=== PATIENT | male | born 1955 | race Caucasian/White ===

== ENCOUNTER → 2019-09-27 | Day surgery (SDC) | payer MEDICARE, OTHER ==
[~2019-09-27] MED LIST: ACETAMINOPHEN 325 MG TABLET PO PRN; ALBUTEROL SULFATE 2.5 MG/3 ML NEBU. NEB PRN; ATEN25TA42 PO; ATROPINE 0.5 MG/5 ML DISP.SYRIN. IV PRN; BALANCED SALT IRRIG OPHTH SOLN 15 ML BOTTLE. IRR ONE; CHONDROIT-SOD-HYALURONATE KIT. OD ONE; CHONDROIT-SOD-HYALURONATE KIT. ONE; DILT300C23 PO; EPINEPHrine AMPULE 0.5 MG in BALANCED SALT IRRIG SOLN PLUS 500 ML IO ONE; ERYTHROMYCIN 0.5% OPHTH OINTMENT 1GM TUBE. OD ONE; HYALURONIDASE 75UNITS in LIDOCAINE 2% PF OPHTH 10 ML SYRINGE. OD ONE; IV RINGERS SOLUTION,LACTATED 1,000 ML IV SCH; LOSA50TA86 PO; METH5TAB85 PO; MOXIFLOXACIN 0.5% OPHTH SOLUTION 3ML BOTTLE. OD SCH; NEPAFENAC 0.1% OPHTH SOLUTION 3ML BOTTLE. OD ONE; NON FORMULARY ITEM OD ONE; ONDANSETRON PF 4 MG/2 ML VIAL. IV PRN; PHENOL ORAL SPRAY 177ML BOTTLE. MM PRN; POVIDONE-IODINE 5% OPHTH SOLUTION 30ML BOTTLE. OD ONE; POVIDONE-IODINE 5% OPHTH SOLUTION 30ML BOTTLE. ONE; PROPOFOL 20 ML IV ONE; TETRACAINE 0.5% OPHTH SOLUTION 4ML BOTTLE. OD ONE; TETRACAINE 0.5% OPHTH SOLUTION 4ML BOTTLE. OU ONE; diphenhydrAMINE 50 MG/ML VIAL IV PRN; prednisoLONE ACETATE 1% OPHTH SUSPENSION 5ML BOTTLE. OD ONE; prednisoLONE ACETATE 1% OPHTH SUSPENSION 5ML BOTTLE. OD SCH; prednisoLONE ACETATE 1% OPHTH SUSPENSION 5ML BOTTLE. ONE
[2019-09-27] MEDS: MOXIFLOXACIN 0.5% OPHTH SOLUTION 3ML BOTTLE. OD SCH ×3 (09:38→09:50)
[2019-09-27] MEDS: CATARACT OPHTH GEL 0.5 ML SYRINGE. OD PRN ×2 (09:50→10:02)
--- NOTE | 2019-09-27 10:49 | PDOC4 ---
CATARACT Operative Report DATE DATE: 09/27/19 TIME: 10:48 Operation Performed Operative Report Name: Caio Marquez Operation Date: @TD@ Preoperative Diagnosis: 1. Senile cataract, RIGHT: eye Postoperative Diagnosis: 1. Senile cataract, RIGHT: eye. Operation: 1. Phacoemulsification with posterior chamber intraocular lens implant. Surgeon: Myrna David D.O. Anesthesia: Local with monitored anesthesia care. Description of Operation: With cardiac monitoring and intravenous sedation, the patient received peribulbar anesthesia in the holding area. Pressure was applied to the eye with a [place] balloon for approximately 10 minutes. The patient was taken to the operating room and placed in a supine position. The periorbital region was prepped and draped in the usual sterile fashion. A lid speculum was placed between the eyelids. The patient was positioned under the microscope. A temporal clear corneal incision was made with a keratome. Viscoelastic was then injected into the eye. A side port incision was made three clock hours to the left of the clear corneal incision. A cystotome and capsular forceps were used to make a continuous tear capsulorhexus. Hydrodissection was performed with balanced salt solution. The phacoemulsification needle was placed into the eye and the cataract was removed. The remaining cortical material was removed with irrigation and aspiration. The posterior capsule was noted to be clean and intact. Viscoelastic was again injected into the eye, inflating the posterior capsular bag. A foldable intraocular lens was then injected into the eye, unfolding as desired, and positioned in the capsular bag. The viscoelastic was aspirated from the eye. The wound edges were hydrated with balanced salt solution. There were no wound leaks. Viscoelastic was injected over the side port and clear corneal incisions. One drop of Vigamox and one drop of prednisolone acetate were instilled into the eye. The lid speculum was removed and a pressure dressing with a Thomas shield was placed over the eye. The patient was taken to the recovery room in good condition. AMANDA DAVID DO Sep 27, 2019 10:49
[2019-09-27 11:00] VITALS: BP 158/99
== END | disposition home or self-care (01) ==
LOC: SURG 08:31
PROVIDERS: ATTEND Ophthalmology
DX: H25.11 Age-related nuclear cataract, right eye (principal); I10 Essential (primary) hypertension; E05.90 Thyrotoxicosis, unspecified without thyrotoxic crisis or storm; E66.9 Obesity, unspecified; Z98.890 Other specified postprocedural states; Z83.3 Family history of diabetes mellitus; Z88.8 Allergy status to other drugs, medicaments and biological substances; Z68.31 Body mass index [BMI] 31.0-31.9, adult
CPT/HCPCS: 66984; J0171; J2704; V2632

== ENCOUNTER → 2020-08-14 | Outpatient (CLI) | payer MEDICARE, OTHER ==
[2019-09-27 11:00] VITALS: BP 158/99
[~2020-08-14] MED LIST changes: -ACETAMINOPHEN 325 MG TABLET PO PRN; -ALBUTEROL SULFATE 2.5 MG/3 ML NEBU. NEB PRN; -ATROPINE 0.5 MG/5 ML DISP.SYRIN. IV PRN; -BALANCED SALT IRRIG OPHTH SOLN 15 ML BOTTLE. IRR ONE; -CHONDROIT-SOD-HYALURONATE KIT. OD ONE; -CHONDROIT-SOD-HYALURONATE KIT. ONE; -EPINEPHrine AMPULE 0.5 MG in BALANCED SALT IRRIG SOLN PLUS 500 ML IO ONE; -ERYTHROMYCIN 0.5% OPHTH OINTMENT 1GM TUBE. OD ONE; -HYALURONIDASE 75UNITS in LIDOCAINE 2% PF OPHTH 10 ML SYRINGE. OD ONE; -IV RINGERS SOLUTION,LACTATED 1,000 ML IV SCH; -MOXIFLOXACIN 0.5% OPHTH SOLUTION 3ML BOTTLE. OD SCH; -NEPAFENAC 0.1% OPHTH SOLUTION 3ML BOTTLE. OD ONE; -NON FORMULARY ITEM OD ONE; -ONDANSETRON PF 4 MG/2 ML VIAL. IV PRN; -PHENOL ORAL SPRAY 177ML BOTTLE. MM PRN; -POVIDONE-IODINE 5% OPHTH SOLUTION 30ML BOTTLE. OD ONE; -POVIDONE-IODINE 5% OPHTH SOLUTION 30ML BOTTLE. ONE; -PROPOFOL 20 ML IV ONE; -TETRACAINE 0.5% OPHTH SOLUTION 4ML BOTTLE. OD ONE; -TETRACAINE 0.5% OPHTH SOLUTION 4ML BOTTLE. OU ONE; -diphenhydrAMINE 50 MG/ML VIAL IV PRN; -prednisoLONE ACETATE 1% OPHTH SUSPENSION 5ML BOTTLE. OD ONE; -prednisoLONE ACETATE 1% OPHTH SUSPENSION 5ML BOTTLE. OD SCH; -prednisoLONE ACETATE 1% OPHTH SUSPENSION 5ML BOTTLE. ONE
[2020-08-14 17:31] LABS: BASO % 0 % (0-3); EOS # 0.1 x10^3/uL (0.0-0.7); EOS % 2 % (0-3); HEMATOCRIT 44.9 % (39.0-53.0); HEMOGLOBIN 15.3 g/dL (13.0-17.5); LYMPH # 2.4 x10^3/uL (1.0-4.8); LYMPH % 37 % (24-48); MEAN CORPUSCULAR HEMOGLOBIN 31 pg (25-35); MEAN CORPUSCULAR HGB CONC 34 g/dL (31-37); MEAN CORPUSCULAR VOLUME 92 fL (79-100); MONO # 0.6 x10^3/uL (0.0-1.1); MONO % 10 % (0-9); NEUT # 3.3 x10^3uL (1.8-7.7); NEUT % 51 % (31-73); PLATELET COUNT 188 x10^3/uL (140-400); RED BLOOD COUNT 4.88 x10^6/uL (4.30-5.70); RED CELL DISTRIBUTION WIDTH 13.7 % (11.5-14.5); WHITE BLOOD COUNT 6.5 x10^3/uL (4.0-11.0)
[2020-08-14 17:33] LABS: CALCIUM 8.4 mg/dL (8.5-10.1); CREATININE 1.5 mg/dL (0.7-1.3); GFR 46.7; POTASSIUM 3.1 mmol/L (3.5-5.1)
== END ==
LOC: LAB 16:53
PROVIDERS: ATTEND Internal Medicine Interventional Cardiology
DX: I35.0 Nonrheumatic aortic (valve) stenosis (principal)
CPT/HCPCS: 36415; 80048; 85025; 85610

== ENCOUNTER → 2020-09-10 | Outpatient (CLI) | payer MEDICARE, OTHER ==
[2019-09-27 11:00] VITALS: BP 158/99
[2020-09-10 16:27] LABS: CALCIUM 8.5 mg/dL (8.5-10.1); CREATININE 1.4 mg/dL (0.7-1.3); GFR 50.5; POTASSIUM 3.3 mmol/L (3.5-5.1)
== END ==
LOC: LAB 15:37
PROVIDERS: ATTEND Internal Medicine Interventional Cardiology
DX: N28.9 Disorder of kidney and ureter, unspecified (principal); Z95.3 Presence of xenogenic heart valve
CPT/HCPCS: 36415; 80048

== ENCOUNTER → 2021-03-05 | Outpatient (CLI) | payer MEDICARE, OTHER ==
[2019-09-27 11:00] VITALS: BP 158/99
--- NOTE | 2021-03-05 12:26 | RAD ---
Exam performed: Scrotal ultrasound. Indication: Testicular pain and swelling Date of Service: 03/05/2021. Comparison: None available Technique: Real-time grayscale,color flow, duplex doppler and spectral analysis of the scrotal kyler nts is performed and images are obtained. Findings: The right testicle measures 5.2 x 2.8 x 2.7 cm where as the left testicle measures 4.4 x 2.8 x 2.4 cm . No focal lesions are identified. There is bilateral symmetric vascularity. The right epididymis is poorly visualized, instead a large loculated hydrocele or epididymal cyst me asuring 7.2 x 6.6 x 5.5 cm is seen. Multiple left epididymal cysts are seen, the largest measures 1.0 x 1.3 x 1.2 cm. Small left hydrocel e. No hydroceles and varicocele is identified. Impression: 1. Normal bilateral testicles. 2. Large loculated hydrocele versus renal cyst on the right with multiple small left epididymal cysts . Electronically signed by: Shanika Guadarrama MD (03/05/2021 12:23 PM) [id number]
== END ==
LOC: US 11:35
PROVIDERS: ATTEND Family Medicine
DX: N50.811 Right testicular pain (principal); N50.89 Other specified disorders of the male genital organs
CPT/HCPCS: 76870

== ENCOUNTER → 2021-03-13 | Day surgery (SDC) | payer MEDICARE, OTHER ==
[~2021-03-13] MED LIST changes: +APIX5TAB3 PO; +ASPI-630 PO; +BUPIVACAINE MPF 0.25% 10 ML VIAL. ONE; +DEXAMETHASONE SOD PHOS 10 MG/ML VIAL. ONE; +IOHEXOL 300 MG/ML 50 ML VIAL. ONE; +LIDOCAINE 1% PF 30 ML VIAL. ONE
[2021-03-13 15:25] VITALS: BP 169/99
== END | disposition home or self-care (01) ==
LOC: SURG 14:22
PROVIDERS: ATTEND Anesthesiology
DX: M54.16 Radiculopathy, lumbar region (principal); I10 Essential (primary) hypertension; E05.90 Thyrotoxicosis, unspecified without thyrotoxic crisis or storm; Z83.3 Family history of diabetes mellitus; Z95.3 Presence of xenogenic heart valve; Z88.8 Allergy status to other drugs, medicaments and biological substances; Z98.890 Other specified postprocedural states; Z79.899 Other long term (current) drug therapy; Z82.49 Family history of ischemic heart disease and other diseases of the circulatory system
CPT/HCPCS: 64483; 64484; J1100; J3490; Q9967

== ENCOUNTER → 2021-04-10 | Day surgery (SDC) | payer MEDICARE, OTHER ==
[2021-03-13 15:25] VITALS: BP 169/99
[~2021-04-10] MED LIST changes: -BUPIVACAINE MPF 0.25% 10 ML VIAL. ONE; -DEXAMETHASONE SOD PHOS 10 MG/ML VIAL. ONE; -IOHEXOL 300 MG/ML 50 ML VIAL. ONE; -LIDOCAINE 1% PF 30 ML VIAL. ONE
== END | disposition home or self-care (01) ==
LOC: SURG 14:51
PROVIDERS: ATTEND Anesthesiology
DX: M54.16 Radiculopathy, lumbar region (principal); I10 Essential (primary) hypertension; E05.90 Thyrotoxicosis, unspecified without thyrotoxic crisis or storm; Z88.8 Allergy status to other drugs, medicaments and biological substances; Z79.899 Other long term (current) drug therapy; E66.9 Obesity, unspecified; Z95.3 Presence of xenogenic heart valve; Z83.3 Family history of diabetes mellitus; Z98.890 Other specified postprocedural states; Z82.49 Family history of ischemic heart disease and other diseases of the circulatory system
CPT/HCPCS: 99204; G0463

== ENCOUNTER 2021-04-19 17:53 | Emergency (ER) | payer MEDICARE, OTHER ==
[~2021-04-19] VITALS: Ht 180.3 cm; Wt 109.8 kg
--- NOTE | 2021-04-19 18:13 | PHYS DOC ---
Past History Past Medical History: A-Fib, Hypertension Past Surgical History Bovine Aortic replacement 2009 General Adult HPI: HPI: ".. I was in to get my hydrocele on my Rt testicle stripped.. but I was in Afib.. they sent me to [facility].. I ve been off my Eliquis 5 days...but [facility] harrington said and admit and or go ED and be observed .. " Patient is a 65 year old male who presents with above hx and complaints of Afib. Sent from [facility] office. Pt. patient has known coagulopathy issues due to aortic valve replacement.. Patient has been off his Eliquis for approximately 5 days. Patient does have a history of hypertension. A. fib is used controlled with Cardizem. Patient was given metoprolol in the office Dr. Peters. Patient has noted he has had some increased fatigue in last several months and has discussed this with his search marketing specialist at [facility]. Review of Systems: Review of Systems: Constitutional: Denies fever or chills Eyes: Denies change in visual acuity HENT: Denies nasal congestion or sore throat Respiratory: Denies cough or shortness of breath Cardiovascular: Complains of A. fib GI: Denies abdominal pain, nausea, vomiting, bloody stools or diarrhea. : Denies dysuria. Complains of right hydrocele Musculoskeletal: Denies back pain or joint pain Integument: Denies rash Neurologic: Denies headache, focal weakness or sensory changes Endocrine: Denies polyuria or polydipsia Lymphatic: Denies swollen glands Psychiatric: Denies depression or anxiety Family History: Family History: Noncontributory to presentation. Current Medications: Current Meds: See Nursing for home meds. Allergies: Allergies: Allergies Coded Allergies Type Severity Reaction Last Updated Verified Beta-Blockers (Beta-Adrenergic Bloc Allergy Unknown 04/10/21 Yes Physical Exam: PE: Constitutional: no acute distress, non-toxic appearance. [] HENT: Normocephalic, atraumatic, bilateral external ears normal, oropharynx moist, no oral exudates, nose normal. [] Eyes: PERRLA, EOMI, conjunctiva normal, no discharge. [] Neck: Normal range of motion, no tenderness, supple, no stridor. [] Cardiovascular:Heart rate regular rhythm, no murmur [] monitor shows a variance between sinus rhythm and A. fib. Rate controlled. Has had aortic murmur Lungs & Thorax: Bilateral breath sounds clear to auscultation [] large midline scar. Bilateral basilar crackles. Abdomen: Bowel sounds normal, soft, no tenderness, no masses, no pulsatile ma sses. Old surgical scar Skin: Warm, dry, no erythema, no rash. [] Back: No tenderness, no CVA tenderness. [] Extremities: No tenderness, no cyanosis, no clubbing, ROM intact, no edema. [] Mild arthritic changes. No cording. Neurologic: Alert and oriented X 3, normal motor function, normal sensory function, no focal deficits noted. [] Psychologic: Affect anxious, judgement normal, mood normal. [] EKG: EKG: My interpretation EKG shows a atrial flutter with rate controlled at 72. Has left axis deviation. Does have findings of a fascicular block. But no findings of acute STEMI with contralateral changes. Is an abnormal EKG. [] Radiology/Procedures: Radiology/Procedures: [][place] [address] IMAGING REPORT Signed PATIENT: ANGELIQUE MAYA ACCOUNT: [id number] : 1955 LOCATION: ER AGE: 65 SEX: M EXAM STATUS: REG ER ORD. PHYSICIAN: KATHY BAZAN MD REASON: tachy, hx chf PROCEDURE: PORTABLE CHEST 1V AP chest. HISTORY: Tachycardia, history of CHF AP view was taken of the chest. Patient had previous bypass. There are no acute infiltrates. There is no pleural effusion. Heart is mildly enlarged. IMPRESSION: 1. No acute infiltrates. Electronically signed by: Alex Boles MD (04/19/2021 6:46 PM) [facility] DICTATED AND SIGNED BY: ALEX BOLES MD DATE: 04/19/21 184 CC: LORETTA AUSTIN MD; KATHY BAZAN MD ~MTH0 0 Heart Score: C/O Chest Pain: N/A HEART Score for Chest Pain: HEART Score for Chest Pain Response (Comments) Value History Moderately Suspicious 1 ECG Nonspecific Repolarizatio 1 Age > 65 2 Risk Factors 1 or 2 Risk Factors 1 Troponin < Normal Limit 0 Total 5 Risk Factors: Risk Factors: DM, Current or recent (<one month) smoker, HTN, HLP, family history of CAD, obesity. Risk Scores: Score 0 - 3: 2.5% MACE over next 6 weeks - Discharge Home Score 4 - 6: 20.3% MACE over next 6 weeks - Admit for Clinical Observation Score 7 - 10: 72.7% MACE over next 6 weeks - Early Invasive Strategies Course & Med Decision Making: Course & Med Decision Making Pertinent Labs and Imaging studies reviewed. (See chart for details) Patient to follow-up with primary care. Patient follow-up with cardiology. Gia ient resume all his cardiac meds especially his Eliquis tonight. Reschedule his elective hydrocele surgery. Return if any concerns. Impression: 1. Hx. Afib with rapid ventricular response 2. Hx. bovine replacement aortic valve 2009 3. History of hypertension 4. History of large right hydrocele 5. CHF- BNP 1, 859 [] Davian Disclaimer: Davian Disclaimer: This electronic medical record was generated, in whole or in part, using a voice recognition dictation system. Departure Departure: Referrals: LORETTA AUSTIN MD (PCP) Davian Disclaimer This chart was dictated in whole or in part using Voice Recognition software in a busy, high-work load, and often noisy Emergency Department environment. It may contain unintended and wholly unrecognized errors or omissions. KATHY BAZAN MD Apr 19, 2021 18:13
[2021-04-19] MEDS ORDERED: IV RINGERS SOLUTION,LACTATED 1,000 ML IV SCH (18:15)
[2021-04-19 18:25] VITALS: BP 160/119
--- NOTE | 2021-04-19 18:48 | RAD ---
AP chest. HISTORY: Tachycardia, history of CHF AP view was taken of the chest. Patient had previous bypass. There are no acute infiltrates. There is no pleural effusion. Heart is mildly enlarged. IMPRESSION: 1. No acute infiltrates. Electronically signed by: Alex Boles MD (04/19/2021 6:46 PM) [facility]
[2021-04-19 18:54] LABS: BASO % 0 % (0-3); EOS # 0.1 x10^3/uL (0.0-0.7); EOS % 1 % (0-3); HEMOGLOBIN 13.6 g/dL (13.0-17.5); LYMPH # 1.8 x10^3/uL (1.0-4.8); LYMPH % 23 % (24-48); MEAN CORPUSCULAR HEMOGLOBIN 31 pg (25-35); MEAN CORPUSCULAR HGB CONC 34 g/dL (31-37); MEAN CORPUSCULAR VOLUME 91 fL (79-100); MONO # 0.7 x10^3/uL (0.0-1.1); MONO % 9 % (0-9); NEUT # 5.4 x10^3uL (1.8-7.7); NEUT % 67 % (31-73); PLATELET COUNT 247 x10^3/uL (140-400); RED BLOOD COUNT 4.42 x10^6/uL (4.30-5.70); RED CELL DISTRIBUTION WIDTH 13.9 % (11.5-14.5)
[2021-04-19 19:10] LABS: BARBITURATES NEG (NEG); BENZODIAZEPINES POS (NEG); CANNABINOIDS NEG (NEG); COCAINE NEG (NEG); METHADONE NEG (NEG); OPIATES NEG (NEG); PHENCYCLIDINE NEG (NEG)
[2021-04-19 19:13] LABS: AMPHETAMINE/METHAMPHETAMINE NEG (NEG)
[2021-04-19 19:17] LABS: BILIRUBIN,URINE NEG (NEG); CLARITY,URINE CLEAR; COLOR,URINE YELLOW; GLUCOSE,URINE NEG (NEG); NITRITE,URINE NEG (NEG)
[2021-04-19 19:18] LABS: BACTERIA,URINE 0 /HPF (0-FEW); RBC,URINE 0 /HPF (0-2); SQUAMOUS EPITHELIAL CELL,UR FEW /LPF; WBC,URINE 0 /HPF (0-4)
[2021-04-19 19:22] LABS: ALBUMIN 3.2 g/dL (3.4-5.0); CALCIUM 8.2 mg/dL (8.5-10.1); CREATININE 1.2 mg/dL (0.7-1.3); DIRECT BILIRUBIN 0.1 mg/dL (0.0-0.2); GFR 60.4; MAGNESIUM 2.1 mg/dL (1.8-2.4); POTASSIUM 3.6 mmol/L (3.5-5.1); TOTAL BILIRUBIN 0.3 mg/dL (0.2-1.0); TOTAL PROTEIN 5.9 g/dL (6.4-8.2)
[2021-04-19] MEDS ORDERED: FUROSEMIDE 40 MG/4 ML VIAL IVP ONE (20:00)
--- NOTE | 2021-04-19 22:29 | EKG ---
[address] [address] Test Date: 2021-04-19 Test Time: 18:17:14 Pat Name: ANGELIQUE MAYA Department: Room: Gender: M Lease Examiner: PAVITHRA : 1955 Requested By: KATHY BAZAN Order Number: [id number] Reading MD: Measurements Intervals [place] Rate: 72 P: [place]: QRS: -42 QRSD: 92 T: 2 QT: 370 QTc: 407 Interpretive Statements ATRIAL FLUTTER ABNORMAL LEFT AXIS DEVIATION R-S TRANSITION ZONE IN V LEADS DISPLACED TO THE RIGHT LEFT ANTERIOR FASCICULAR BLOCK ABNORMAL ECG RI6.02 No previous ECG available for comparison
== END 2021-04-19 20:09 | disposition home or self-care (01) ==
LOC: ER 17:53
DX: I48.20 Chronic atrial fibrillation, unspecified (principal); I11.0 Hypertensive heart disease with heart failure; I50.9 Heart failure, unspecified
CPT/HCPCS: 36415; 71045; 80048; 80076; 80307; 81001; 82550; 83690; 83735; 83880; 84443; 84484; 85025; 93005; 96374; 99285; J1940